=== PATIENT | female | born 1990 | race Caucasian/White ===

== ENCOUNTER 2025-05-08 01:57 | Inpatient (IN) | payer OTHER ==
[2025-05-08] MEDS ORDERED: OXYTOCIN 30 UNITS/500 ML NS BAG IV ONE (03:03)
[2025-05-08] MEDS ORDERED: SUCCINYLCHOLINE CHLORIDE 200 MG/10 ML VIAL IV ONE (03:03)
[2025-05-08] MEDS ORDERED: LIDOCAINE 1% INJ 10MG/ML (20 ML MDV) ONE (03:03)
[2025-05-08] MEDS ORDERED: PROPOFOL 10 MG/ML 20 ML VIAL IV ONE (03:03)
[2025-05-08] MEDS ORDERED: PHENYLEPHRINE-0.9% NACL SYG 1,000 MCG/10 ML SYRINGE ONE (03:03)
[2025-05-08] MEDS ORDERED: HYDROmorphone (PF) 1 MG/ML ONE (03:03)
[2025-05-08] MEDS ORDERED: ONDANSETRON 4 MG/2 ML VIAL ONE (03:03)
[2025-05-08] MEDS ORDERED: fentaNYL (PF) 50 MCG/ML 2 ML AMP ONE (03:03)
[2025-05-08 03:30] LABS: Basophils # (A) 0.05 10*3/uL (0.00-0.10); Basophils % (A) 0.4 %; Eosinophils # (A) 0.11 10*3/uL (0.04-0.35); Eosinophils % (A) 0.8 %; HGB 10.5 g/dL (12.0-15.0); Lymphocytes # (A) 2.81 10*3/uL (0.90-5.00); Lymphocytes % (A) 21.5 %; MCH 25.4 pg (27.0-32.0); MCHC 32.8 g/dL (32.0-37.0); MCV 77.3 fL (80.0-97.0); Mean Platelet Volume 9.7 fL (9.5-12.2); Monocytes # (A) 0.74 10*3/uL (0.20-1.00); Monocytes % (A) 5.7 %; Neutrophils # (A) 9.29 10*3/uL (1.80-7.70); Neutrophils % (A) 71.1 %; Platelet Count 317 10*3/uL (140-440); RBC 4.14 10*6/uL (4.10-5.20); RDW 13.4 % (11.5-14.5); WBC 13.07 10*3/uL (4.50-10.00)
--- NOTE | 2025-05-08 03:46 | P.HPOB ---
History of Present Illness H&P Date: 05/08/25 Chief Complaint: Term , footling breech This is a 34-year-old 5 para 4-0-0-4 at 37-5/7 weeks, estimated due date of 05/23 based on last menstrual period. Patient has not received any care this . Patient states she began abraham yesterday irregular in nature and they became more regular around midnight. Patient denied loss of fluid. Patient denies vaginal bleeding. Patient has noted good movement throughout Unknown labs Patient states her last 4 deliveries were all term, spontaneous vaginal deliveries Review of Systems Constitutional: Denies chills, Denies fatigue, Denies fever Ears, nose, mouth and throat: Denies headache Cardiovascular: Reports leg edema Respiratory: Denies dyspnea Gastrointestinal: Denies nausea, Denies vomiting Genitourinary: Reports Past Medical History History of Any Multi-Drug Resistant Organisms: None Reported Smoking Status: Vaper Medications and Allergies Home Medications Medication Instructions Recorded Confirmed Type No Known Home Medications 05/08/25 05/08/25 History Allergies Allergy/AdvReac Type Severity Reaction Status Date / Time No Known Allergies Allergy Verified 05/08/25 02:05 Exam Osteopathic Statement: *. No significant issues noted on an osteopathic structural exam other than those noted in the History and Physical/Consult. Intake and Output 05/07/25 05/07/25 05/08/25 14:59 22:59 06:59 Other: Weight 86.183 kg Operative physical exam was performed this date in general is well-nourished well-developed female in active labor, breathing is nonlabored, abdomen is gravid, on cervical exam she is completely dilated with a bulging bag of water and a foot palpated in the vagina. Results Result Diagrams: 05/08/25 02:46 Abnormal Lab Results - Last 24 Hours (Table) 05/08/25 Range/Units 02:46 WBC 13.07 H (4.50-10.00) 10*3/uL Hgb 10.5 L (12.0-15.0) g/dL Hct 32.0 L (37.2-46.3) % MCV 77.3 L (80.0-97.0) fL MCH 25.4 L (27.0-32.0) pg Immature Gran # 0.07 H (0.00-0.04) 10*3/uL Neutrophils # 9.29 H (1.80-7.70) 10*3/uL Assessment and Plan (1) Term Current Visit: Yes Status: Acute Code(s): Z34.90 - ENCNTR FOR SUPRVSN OF NORMAL , UNSP, UNSP TRIMESTER SNOMED Code(s): 76893564 (2) Footling breech presentation Current Visit: Yes Status: Acute Code(s): O32.8XX0 - MATERNAL CARE FOR OTH MALPRESENTATION OF FETUS, UNSP SNOMED Code(s): 652829409 (3) No care in current Current Visit: Yes Status: Acute Code(s): O09.30 - SUPRVSN OF PREG W INSUFFICIENT ANTENAT CARE, UNSP TRIMESTER SNOMED Code(s): 107606717 Plan: Admit to labor and delivery for urgent section given footling breech. Anesthesia is notified Plan discussed with patient and significant other, need for urgent is reviewed questions are answered and they state understanding. Informed consent is obtained
--- NOTE | 2025-05-08 03:51 | P.OP ---
Date of Procedure: 05/08/25 Preoperative Diagnosis: IUP at 37-5/7 weeks, footling breech, active labor Postoperative Diagnosis: Same Procedure(s) Performed: Primary low-transverse section Anesthesia: LAURENCE Surgeon: Sona Holly [employer] Extension Worker #1: Jessica Augustin Estimated Blood Loss (ml): 368 IV fluids (ml): 300 Urine output (ml): 200 Pathology: none sent Condition: stable Disposition: observation Indications for Procedure: Footling breech Operative Findings: Viable male infant delivered at 312, weight of 7 pounds 6 ounces, Apgars of 9 and 9 at 1 and 5 minutes respectively Description of Procedure: The patient was prepped and draped in the normal fashion and general anesthesia was obtained without difficulty by the anesthesia department. A Pfannenstiel incision was made and extended of the abdominal cavity without difficulty. The bladder peritoneum was elevated and incised and reflected distally. A 2 cm incision was made in the transverse plane of the lower uterine segment to enter the uterus at which time clear fluid was noted. The incision was extended in both directions using the bandage scissors. The head was encountered within the field and delivered up and through the incision where the nose and mouth were thoroughly suctioned. Remainder of the was delivered onto the surgical field where the cord was doubly clamped, cut, and the infant was passed for resuscitative measures with weight and Apgars as noted above. A segment of cord was then doubly clamped, cut, and set aside should cord gases become necessary. The placenta was delivered manually, intact, and was grossly normal with a grossly normal three-vessel cord. The uterus was exteriorized and the interior cavity of the uterus swept of any remaining placental and membranous fragments with a laparotomy sponge. The margins of the incision were grasped with Allis clamps and the incision closed in 2 layers. First layer was a running locking layer of 0 Vicryl from margin to margin followed by a second layer of imbricating 0 Vicryl from margin to margin. Any small points of bleeding were then made hemostatic with the Bovie. Once hemostasis was achieved, the posterior cul-de-sac was suctioned with a guard and the uterine and ovarian findings are as noted above. The uterus was replaced within the abdominal cavity and the gutters swept of any remaining blood fluid or clot. The incision was again reexamined and hemostasis was noted to be excellent. Any small point of bleeding were made hemostatic with the Bovie. Once hemostasis was achieved the parietal peritoneum was loosely reapproximated. The layer of muscles were examined and made hemostatic with the Bovie. Attention was then turned to the fascia which was closed with 2 running stitches of 0 Vicryl proceeding from the lateral margins to the midpoint. The subcutaneous tissues were irrigated, made hemostatic with the Bovie, and reapproximated with a running stitch of 30 Vicryl. The skin was reapproximated with 4 oh. Estimated blood loss for the case was approximately 368 mL. All sponge instrument and needle counts are correct. There were no complications. The patient tolerated the procedure well and proceeded to the recovery room in stable condition. Both mother and are resting comfortably in recovery.
[2025-05-08] MEDS ORDERED: diphenhydrAMINE 25 MG CAP PO PRN ×2 (03:52→04:14)
[2025-05-08] MEDS ORDERED: NALOXONE 0.4 MG/ML 1 ML VIAL IV PRN (03:52)
[2025-05-08] MEDS ORDERED: diphenhydrAMINE 50 MG CAP PO PRN ×2 (03:52→04:14)
[2025-05-08] MEDS ORDERED: diphenhydrAMINE 50 MG/ML 1 ML VIAL IVP PRN ×4 (03:52→04:14)
[2025-05-08] MEDS ORDERED: ZOLPIDEM 5 MG TAB PO PRN (03:52)
[2025-05-08] MEDS ORDERED: ONDANSETRON 4 MG/2 ML VIAL IVP PRN (03:52)
[2025-05-08] MEDS ORDERED: METOCLOPRAMIDE 5 MG/ML 2 ML VIAL IVP PRN (03:52)
[2025-05-08] MEDS ORDERED: TRANEXAMIC 1,000 MG/100ML-NACL 1,000 MG in EMPTY BAG 1 BAG IV PRN (03:54)
[2025-05-08] MEDS ORDERED: CARBOPROST TROMETHAMINE 250 MCG/ML 1 ML AMP IM PRN (03:54)
[2025-05-08] MEDS ORDERED: METHYLERGONOVINE 0.2 MG/ML 1 ML AMP IM PRN (03:54)
[2025-05-08] MEDS ORDERED: OXYTOCIN 10 UNIT/ML 1 ML VIAL IM PRN (03:54)
[2025-05-08] MEDS ORDERED: miSOPROStoL 200 MCG TAB PO PRN (03:54)
[2025-05-08] MEDS: CITRIC ACID-SODIUM CITRATE 15 ML CUP PO ONE (04:48)
[2025-05-08] MEDS: ACETAMINOPHEN IV (For NPO) 1,000 MG in EMPTY BAG 1 BAG IVPB ONE (05:00)
[2025-05-08] MEDS: LACTATED RINGERS 1,000 ML IV SCH ×2 (05:03→05:04)
[2025-05-08] MEDS: IBUPROFEN 800 MG TAB PO SCH (05:23)
[2025-05-08] MEDS: HYDROmorphone PCA 10 MG/50 ML BAG IV PRN (05:28)
[2025-05-08 06:44] LABS: Amphetamine Screen,Urine Not Detected (NotDetected); Barbiturate Screen,Urine Not Detected (NotDetected); Benzodiazepines Screen,Urine Not Detected (NotDetected); Cocaine Screen,Urine Not Detected (NotDetected); Methadone Screen, Urine Not Detected (NotDetected); Opiate Screen,Urine Not Detected (NotDetected); Oxycodone Screen, Urine Not Detected (NotDetected); Phencyclidine Screen,Urine Not Detected (NotDetected); Tricyclic Antidepressant,Urine Not Detected (NotDetected); Urn Cannabinoid Scrn Not Detected (NotDetected)
[2025-05-08] MEDS: SENNOSIDES-DOCUSATE SODIUM 1 EACH TAB PO SCH (08:22)
[2025-05-08] MEDS: IBUPROFEN IV 800 MG in SODIUM CHLORIDE 0.9% 250 ML IV ONE (08:23)
[2025-05-08] MEDS: ACETAMINOPHEN TAB 500 MG TAB PO SCH (12:33)
[2025-05-08 13:10] LABS: Hepatitis B Surface Antigen Nonreactive (Nonreactive)
[2025-05-08] MEDS: Rhogam IMMUNE GLOBULIN 1,500 UNIT/1 ML IM ONE (18:43)
[2025-05-09 06:12] LABS: Basophils # (A) 0.03 10*3/uL (0.00-0.10); Basophils % (A) 0.2 %; Eosinophils # (A) 0.11 10*3/uL (0.04-0.35); Eosinophils % (A) 0.9 %; HCT 26.8 % (37.2-46.3); Lymphocytes # (A) 2.11 10*3/uL (0.90-5.00); Lymphocytes % (A) 16.4 %; MCH 25.4 pg (27.0-32.0); MCHC 32.5 g/dL (32.0-37.0); MCV 78.4 fL (80.0-97.0); Mean Platelet Volume 9.3 fL (9.5-12.2); Monocytes # (A) 0.89 10*3/uL (0.20-1.00); Monocytes % (A) 6.9 %; Neutrophils # (A) 9.65 10*3/uL (1.80-7.70); Neutrophils % (A) 75.2 %; Platelet Count 221 10*3/uL (140-440); RBC 3.42 10*6/uL (4.10-5.20); RDW 13.6 % (11.5-14.5); WBC 12.84 10*3/uL (4.50-10.00)
[2025-05-09 06:27] LABS: HGB 8.7 g/dL (12.0-15.0)
--- NOTE | 2025-05-09 12:23 | P.PNOBGPC ---
Subjective - Subjective Principal diagnosis: Postop day 1, primary , footling breech Interval history: Patient is doing well postoperatively. She is ambulating and voiding without difficulty. Positive flatus is noted. She denies nausea or vomiting with a regular diet. Lochia is minimal to moderate. Pain is moderately well-controlled. She is breast-feeding without difficulty. Patient reports: Reports appetite normal, Reports voiding normally, Reports a mbulating normally [place]: doing well, nursing well Objective - Vital Signs Latest vital signs: Vital Signs Temp Pulse Resp BP Pulse Ox 05/09/25 08:00 98.2 F 85 16 108/71 05/09/25 00:00 98.2 F 79 18 114/77 97 05/08/25 20:30 98.8 F 88 18 122/84 97 05/08/25 15:30 98.2 F 78 16 116/78 Intake and Output 05/08/25 05/09/25 05/09/25 22:59 06:59 14:59 Output Total 250 Balance -250 Output: Urine 250 Other: # Voids 1 1 2 - Exam Extremities: Present: normal, edema Abdomen: Present: normal appearance, soft Incision: Present: normal, dry, intact Uterus: Present: normal, firm - Labs Labs: Abnormal Lab Results - Last 24 Hours (Table) 05/08/25 05/09/25 Range/Units 07:32 05:58 WBC 12.84 H (4.50-10.00) 10*3/uL RBC 3.42 L (4.10-5.20) 10*6/uL Hgb 8.7 L D (12.0-15.0) g/dL Hct 26.8 L (37.2-46.3) % MCV 78.4 L (80.0-97.0) fL MCH 25.4 L (27.0-32.0) pg MPV 9.3 L (9.5-12.2) fL Immature Gran # 0.05 H (0.00-0.04) 10*3/uL Neutrophils # 9.65 H (1.80-7.70) 10*3/uL Rubella IgG Antibody 41.20 H (0.00-9.00) IU/mL Assessment and Plan (1) Term Current Visit: Yes Status: Acute Code(s): Z34.90 - ENCNTR FOR SUPRVSN OF NORMAL , UNSP, UNSP TRIMESTER SNOMED Code(s): 88758608 (2) Footling breech presentation Current Visit: Yes Status: Acute Code(s): O32.8XX0 - MATERNAL CARE FOR OTH MALPRESENTATION OF FETUS, UNSP SNOMED Code(s): 848898795 (3) No care in current Current Visit: Yes Status: Acute Code(s): O09.30 - SUPRVSN OF PREG W INSUFFICIENT ANTENAT CARE, UNSP TRIMESTER SNOMED Code(s): 629250639 (4) Status post section Current Visit: Yes Status: Acute Code(s): Z98.891 - HISTORY OF UTERINE SCAR FROM PREVIOUS SURGERY SNOMED Code(s): 174506094 Plan: Doing well postoperatively, some skin irritation from bandage, will apply bacitracin. Continue routine postoperative care Anticipate discharge home tomorrow
[2025-05-09] MEDS: BACITRACIN OINT 1 EACH PACKET TOPICAL SCH (13:47)
[2025-05-09 14:46] LABS: HIV 2 AB Non-Reactive (Non-Reactive); HIV AB P24 Non-Reactive (Non-Reactive); HIV P24 AG Non-Reactive (Non-Reactive)
[2025-05-09 14:56] LABS: N. gonorrhoeae,PCR Negative (Negative)
[2025-05-09 14:58] LABS: C. trachomatis,PCR Negative (Negative)
[2025-05-09] MEDS: SIMETHICONE 80 MG CHEWABLE PO PRN (16:00)
[2025-05-10 04:02] LABS: Basophils # (A) 0.04 10*3/uL (0.00-0.10); Basophils % (A) 0.3 %; Eosinophils # (A) 0.12 10*3/uL (0.04-0.35); Eosinophils % (A) 0.9 %; HCT 27.1 % (37.2-46.3); HGB 8.6 g/dL (12.0-15.0); Lymphocytes % (A) 17.9 %; MCH 25.1 pg (27.0-32.0); MCHC 31.7 g/dL (32.0-37.0); MCV 79.2 fL (80.0-97.0); Monocytes # (A) 0.81 10*3/uL (0.20-1.00); Monocytes % (A) 6.3 %; Neutrophils # (A) 9.51 10*3/uL (1.80-7.70); Neutrophils % (A) 74.1 %; Platelet Count 254 10*3/uL (140-440); RBC 3.42 10*6/uL (4.10-5.20); WBC 12.85 10*3/uL (4.50-10.00)
[2025-05-10 08:40] VITALS: BP 107/72; PULSE 77; RESP 16; TEMP 97.7
--- NOTE | 2025-05-10 12:20 | P.DS ---
Providers Date of admission: 05/08/25 03:05 Expected date of discharge: 05/10/25 Attending physician: Sona Holly Primary care physician: Stated None - Discharge Diagnosis(es) (1) Term Current Visit: Yes Status: Acute (2) Footling breech presentation Current Visit: Yes Status: Acute (3) No care in current Current Visit: Yes Status: Acute (4) Status post section Current Visit: Yes Status: Acute Hospital Course: This is a 34-year-old 5 para 5 that presented at 37-5/7 weeks with with an estimated due date of 05/23 based on last menstrual period. Patient had not received any care during this . Patient states she began abraham the day prior to admission and they became more regular around midnight therefore she felt she should present to OB triage. Patient denied loss of fluid or vaginal bleeding prior to presentation to OB triage. Patient's last 4 deliveries were all term spontaneous vaginal deliveries. In OB triage patient was found to be footling breech presentation and was counseled on need for primary secondary to male presentation. Patient was taken back to the operating suite where general anesthesia was obtained given advanced dilation and footling breech and a viable male was delivered at 312, weight of 7 pounds 6 ounces, Apgars of 9 and 9 at 1 and 5 minutes respectively. For full details on the please see the dictated operative report. Patient's postoperative course has been uneventful. In this postoperative day #2 she is ambulating and voiding without difficulty. She is tolerating regular diet without nausea or vomiting. She states her pain is well-controlled. She denies concerns at this time. She does feel ready for discharge home. Patient Condition at Discharge: Good Plan - Discharge Summary New Discharge Prescriptions: No Action No Known Home Medications Discharge Medication List No Known Home Medications 05/08/25 [History] Follow up Appointment(s)/Referral(s): Sona Holly DO [Doctor of Osteopathic Medicine] - 05/24/25 1:45 pm (Post Appointment 06-21-2025 at 11:30am) Patient Instructions/Handouts: (DC), (GEN) Activity/Diet/Wound Care/Special Instructions: No tub baths or intercourse until 6 weeks . [id number]-[id number] ibuprofen 600 mg or 3 tablets every 6 hours as needed for pain. Routine postoperative check in 2 weeks. Patient is to allow the Steri-Strips to fall off spontaneously or they will removed at her 2-week postoperative check. Discharge Disposition: HOME SELF-CARE
--- NOTE | 2025-05-10 20:51 | P.MSEPDOC ---
Presenting Problems - Arrival Data Date of Arrival on Unit: 05/08/25 Time of Arrival on Unit: 02:45 Mode of Transport: Portable - Complaint OB-Reason for Admission/Chief Complaint: Possible Onset of Labor Medical History - Information : 5 Para: 4 Term: 4 : 0 Abortions: Spontaneous or Elective: 0 Number of Living Children: 4 - Gestational Age Gestational Age by RADHA (wks/days): 38 Weeks and 1 Days - History Complications: No Care Review of Systems - Review of Systems Constitutional: No problems Breast: No problems ENT: No problems Cardiovascular: No problems Respiratory: No problems Gastrointestinal: No problems Genitourinary: No problems Musculoskeletal: No problems Neurological: No problems Skin: No problems Vital Signs - Temperature Temperature: 97.7 F Temperature Source: Oral - Pulse Pulse Oximetery Pulse Rate: 77 Pulse Assessment Method: Pulse Oximetry - Respirations Respiratory Rate: 16 Oxygen Delivery Method: Room Air O2 Sat by Pulse Oximetry: 97 - Blood Pressure Right Arm Blood Pressure: 107/72 Blood Pressure Mean: 83 Blood Pressure Source: Automatic Cuff Medical Screen Scoring - Cervical Exam Membranes: Intact - Uterine Contractions Frequency From (mins): 4 Frequency To (mins): 4 Duration From (seconds): 60 Duration To (seconds): 60 Intensity: Strong Resting: Soft to palpation - Assessment - Baby A Heart Rate - NICHD Category: Category I (Normal) NST: Reactive Physician Notification - Physician Notified Physician Notified Date: 05/08/25 Physician Notified Time: 02:21 Physician: Sona Holly New Order Received: Yes Maternal Triage Index - Maternal Triage Index Presenting for scheduled procedure w/no complaint: No - Stat/Priority 1 Stat Priority 1: No - Urgent/Priority 2 Urgent Priority 2: No - Prompt/Priority 3 Prompt Priority 3: Yes Criteria Met for Priority 3: contractions every 3-4 mins Disposition - Disposition OB Disposition: Admit Discharge Date: 05/10/25 Discharge Time: 13:20 I agree with the RN Medical Screening Exam: Yes Case reviewed; plan agreed upon as documented in EMR&OBIX.: Yes Diagnosis: RELATED CONDITIONS, UNSPECIFIED, THIRD TRIMESTER
== END 2025-05-10 13:20 | disposition home or self-care (01) | DRG 540 ==
LOC: FBPOP 01:57 → 4FBP 03:05
PROVIDERS: ADMIT Obstetrics & Gynecology Obstetrics; ATTEND Obstetrics & Gynecology Obstetrics
PROC: 10D00Z1 Extraction of Products of Conception, Low, Open Approach (ICD-10-PCS; principal; 2025-05-08 03:12)
DX: O32.8XX0 Maternal care for other malpresentation of fetus, not applicable or unspecified (principal); Z37.0 Single live birth; Z3A.37 37 weeks gestation of pregnancy
CPT/HCPCS: 59025; 80306; 85025; 85461; 86762; 86780; 86850; 86900; 86901; 87340; 87390; 87491; 87591; 99213